=== PATIENT | male | born 1945 | race Caucasian/White ===

== ENCOUNTER 2018-09-19 11:01 | Emergency (ER) | payer MEDICARE, OTHER ==
[~2018-09-19] VITALS: Ht 175.3 cm; Wt 92.4 kg
[~2018-09-19 11:01] MED LIST: ASPI81TA26 PO; CO Q200C10 PO; LIPI80TA PO; LISI-542 PO; LUTE20CA PO; LUTE20TA PO; MAGN500T6 PO; METO1TAB87 PO; MM S100C PO; MULTCAP PO; PLAV1TAB2 PO; SYNT75TA PO; VITA200016 PO
[2018-09-19] MEDS ORDERED: DIGOXIN INJ 0.5 MG/2 ML AMP (J1160) IV STA ×2 (12:07→12:34)
[2018-09-19 12:17] LABS: BASO # 0.1 10^3/uL (0.0-0.2); BASO % 0.6 % (0.0-1.0); EOS % 0.3 % (0.0-3.0); HEMATOCRIT 36.6 % (42.0-52.0); HEMOGLOBIN 12.3 g/dl (13.5-17.5); LYMPH # 0.6 10^3/uL (1.5-4.5); LYMPH % 4.6 % (24.0-44.0); MEAN CORPUSCULAR HEMOGLOBIN 30.9 pg (27.0-33.0); MEAN CORPUSCULAR HGB CONC 33.6 g/dl (32.0-36.5); MONO # 0.5 10^3/uL (0.0-0.8); MONO % 3.9 % (0.0-5.0); NEUTROPHILS # 10.8 10^3/uL (1.8-7.7); NEUTROPHILS % 89.9 % (36.0-66.0); PLATELET COUNT, AUTOMATED 346 10^3/uL (150-450); RED BLOOD COUNT 3.98 10^6/uL (4.30-6.10)
[2018-09-19 12:28] LABS: INR 1.12; PROTHROMBIN TIME 14.1 SECONDS (11.8-14.0)
[2018-09-19 12:29] LABS: PARTIAL THROMBOPLASTIN TIME 38.9 SECONDS (25.0-38.4)
[2018-09-19 12:32] LABS: BLOOD UREA NITROGEN 17 MG/DL (7-18); CALCIUM LEVEL 8.7 MG/DL (8.8-10.2); CARBON DIOXIDE LEVEL 28 MEQ/L (21-32); CHLORIDE LEVEL 105 MEQ/L (98-107); CK-MB VALUE MASS 1.3 NG/ML (<3.6); CPK CREATINE PHOSPHOKINASE 55 U/L (39-308); CREATININE FOR GFR 0.82 MG/DL (0.70-1.30); GLOMERULAR FILTRATION RATE > 60.0 (>42); GLUCOSE, FASTING 115 MG/DL (70-100); MAGNESIUM LEVEL 2.1 MG/DL (1.8-2.4); MB/CK RELATIVE INDEX 2.36 (< OR =4); POTASSIUM SERUM 4.2 MEQ/L (3.5-5.1); SODIUM LEVEL 139 MEQ/L (136-145); TROPONIN I < 0.02 NG/ML (< 0.10)
[2018-09-19] MEDS: METOPROLOL 5 MG/5 ML VIAL IV SCH ×3 (13:10→13:21)
--- NOTE | 2018-09-19 13:10 | REP ---
CHEST, PORTABLE: AP portable view of the chest is performed. There are no prior studies for comparison. There is no acute infiltrate or pulmonary edema. There is mild cardiomegaly. There is mild tortuosity of the thoracic aorta. The mediastinal silhouette is otherwise unremarkable. Multiple sternal wires are present. IMPRESSION: Mild cardiomegaly. No acute infiltrate. Electronically Signed by Alec Tate MD 09/22/2018 11:15 A
[2018-09-19 13:44] VITALS: BP 161/56
[2018-09-19] MEDS ORDERED: METOPROLOL TART 25 MG TABLET PO ONE (13:45)
[2018-09-19] MEDS ORDERED: DIGOXIN INJ 0.5 MG/2 ML AMP (J1160) IV ONE ×2 (13:45→15:00)
[2018-09-19] MEDS ORDERED: APIXABAN 5 MG TAB (ELIQUIS) PO ONE (13:45)
[2018-09-19 13:57] LABS: LIPASE 94 U/L (73-393)
[2018-09-19 16:56] VITALS: BP 124/66
[2018-09-19] MEDS ORDERED: LOPR1TAB6 PO ×2 (16:58→17:04)
[2018-09-19] MEDS ORDERED: ELIQ5TAB PO ×2 (16:58→17:04)
[2018-09-19] MEDS ORDERED: DIGO0.25 PO ×2 (16:58→17:04)
--- NOTE | 2018-09-20 08:02 | ECGEPIP ---
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
--- NOTE | 2018-09-20 08:08 | ECGEPIP ---
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
[2018-09-20] MEDS ORDERED: CLOP75TA2 PO (09:05)
[2018-09-20] MEDS ORDERED: B-122500 PO (09:05)
== END 2018-09-19 17:15 | disposition home or self-care (01) ==
LOC: M ED 11:01
DX: I48.91 Unspecified atrial fibrillation (principal); C85.90 Non-Hodgkin lymphoma, unspecified, unspecified site; Z95.1 Presence of aortocoronary bypass graft; Z95.5 Presence of coronary angioplasty implant and graft; Z79.899 Other long term (current) drug therapy; Z79.82 Long term (current) use of aspirin; Z79.01 Long term (current) use of anticoagulants; Z88.0 Allergy status to penicillin; Z88.8 Allergy status to other drugs, medicaments and biological substances
CPT/HCPCS: 71045; 80048; 82550; 82553; 83690; 83735; 84443; 84484; 85025; 85610; 85730; 93005; 93041; 94760; 96374; 96375; 96376; 99285; J1160

== ENCOUNTER 2018-09-20 08:30 | Emergency (ER) | payer MEDICARE, OTHER ==
[~2018-09-20] VITALS: Ht 172.7 cm; Wt 90.5 kg
[~2018-09-20 08:30] MED LIST changes: +DIGO0.25 PO; +ELIQ5TAB PO; +LOPR1TAB6 PO
[2018-09-20] MEDS ORDERED: B-122500 PO (09:05)
[2018-09-20] MEDS ORDERED: CLOP75TA2 PO (09:05)
[2018-09-20 11:30] VITALS: BP 115/61
--- NOTE | 2018-09-23 15:06 | REP ---
REASON: Chest pain. COMPARISON: 09/22/2018 Cardiomediastinal silhouette and lung schrader are unchanged. Once again, the cardiac silhouette is accentuated by technique as are the interstitial markings. No acute patchy parenchymal opacities or pleural effusions have developed. Note is again made of previous median sternotomy. There is no change in the osseous structures. IMPRESSION: No significant change from yesterday. Cardiomegaly with no evidence of acute cardiopulmonary disease. Electronically Signed by Taiwo Kingston DO 09/23/2018 05:07 P
== END 2018-09-20 12:02 | disposition home or self-care (01) ==
LOC: M ED 08:30
DX: I48.91 Unspecified atrial fibrillation (principal); I10 Essential (primary) hypertension; E78.5 Hyperlipidemia, unspecified; E07.9 Disorder of thyroid, unspecified; I25.2 Old myocardial infarction; Z85.72 Personal history of non-Hodgkin lymphomas; Z95.1 Presence of aortocoronary bypass graft; Z95.5 Presence of coronary angioplasty implant and graft; Z79.899 Other long term (current) drug therapy; Z79.82 Long term (current) use of aspirin; Z79.890 Hormone replacement therapy; Z79.01 Long term (current) use of anticoagulants; Z88.0 Allergy status to penicillin; Z88.8 Allergy status to other drugs, medicaments and biological substances

== ENCOUNTER → 2020-08-30 | Outpatient (CLI) | payer MEDICARE, BC ==
[~2020-08-30] MED LIST changes: +B-122500 PO; +CLOP75TA2 PO; +CRES40TA PO; -DIGO0.25 PO; +DIGO0.253 PO; +DRON400T PO; +FERR324T21 PO; +FOLI1TAB11 PO; +LEVO50TA5 PO; -LISI-542 PO; +LISI-898 PO
--- NOTE | 2020-08-31 19:00 | SLEEPCENT ---
DATE: 08/30/2020 ORDERED BY: DAVID Stewart Nocturnal polysomnography was performed for evaluation of sleep physiology in this patient with a history of excessive somnolence and nonrestorative sleep who has the comorbidities of coronary artery disease and hypertension as well as paroxysmal atrial fibrillation. Seven hours and 50 minutes of data were reviewed. There were 312.5 minutes of sleep identified. Sleep latency was short at 8.5 minutes. REM latency was short at 71 minutes. Sleep architecture showed some fragmentation. There were three five cycles noted. Overall sleep efficiency was 67.3%. The electrocardiogram showed a sinus-appearing rhythm with occasional PVCs. Average heart rate was 80 beats per minute. EEG showed normal waveforms for wake and sleep. There were 63 respiratory events identified of 10 seconds in duration or greater for an apnea-hypopnea index of 12.1. The events were primarily obstructive, not exclusive to sleep stage nor body posture. Arousals from respiratory events occurred 4.4 times per hour, and oxygen desaturations to 88% were seen. There was some activity in the limb leads. Limb movement arousal index was 3.1. There were no trains of events. IMPRESSION: Obstructive sleep apnea syndrome (G47.33). Apnea-hypopnea index 12.1. RECOMMENDATION: The patient should be encouraged to return to [facility] for [facility]. In the interim, alcohol and sedative avoidance should be practiced and caution exercised during the operation of motor vehicles. cc: Abiodun Sapp MD
== END ==
LOC: M SLEEP 20:00
PROVIDERS: ATTEND Nurse Practitioner Family
DX: R06.83 Snoring (principal)

== ENCOUNTER → 2020-10-19 | Outpatient (CLI) | payer MEDICARE, BC ==
--- NOTE | 2020-10-20 14:29 | SLEEPCENT ---
DATE: 10/19/2020 ORDERED BY: Pallavi Watt Nocturnal polysomnography was performed for the titration of pressure therapy in this patient with obstructive sleep apnea syndrome, apnea-hypopnea index of 12. For testing, a ResMed AirFit full-face mask of medium size was used. There was 4 cm of water pressure applied to the circuit, and the lights were extinguished. There was 6 hours of data reviewed. There was 135 minutes of sleep identified. Sleep latency was short at 12.5 minutes. REM latency was short at 75 minutes. Sleep architecture initially showed improvement. There were two REM cycles. Patient had difficulty re-establishing sleep after midnight with resultant reduction of in sleep efficiency of 38%. The electrocardiogram showed a sinus rhythm with an average heart rate of 70 beats per minute. EEG showed fairly normal waveforms for wake and sleep. Time for titration was somewhat limited; however, sleep did improve on a CPAP pressure of +6. IMPRESSION: Obstructive sleep apnea syndrome (G47.33). RECOMMENDATION: Initiation of pressure therapy at 6 cm of water would seem appropriate. Close clinical followup is recommended given the limited time for titration during this test.
== END ==
LOC: M SLEEP 20:00
PROVIDERS: ATTEND Nurse Practitioner Family
DX: G47.33 Obstructive sleep apnea (adult) (pediatric) (principal)

== ENCOUNTER 2020-10-24 03:31 | Emergency (ER) | payer MEDICARE, BC ==
[~2020-10-24] VITALS: Ht 172.7 cm; Wt 99.5 kg
[2020-10-24] MEDS ORDERED: CVS1CAP2 PO (03:49)
[2020-10-24 08:11] LABS: VENOUS BASE EXCESS -3.6 (-2.0-2.0); VENOUS HCO3 19.8 MEQ/L (23.0-27.0); VENOUS O2 SATURATION 97.9 % (60.0-80.0); VENOUS PARTIAL PRESSURE O2 107.4 mmHg (30.0-50.0); VENOUS STANDARD HCO3 21.5 MEQ/L; VENOUS TOTAL CO2 20.8 MEQ/L (24.0-28.0)
[2020-10-24 08:18] LABS: BASO # 0.1 10^3/uL (0.0-0.2); BASO % 0.6 % (0.0-1.0); EOS # 0.1 10^3/uL (0.0-0.5); EOS % 0.5 % (0.0-3.0); HEMATOCRIT 45.1 % (42.0-52.0); HEMOGLOBIN 15.5 g/dl (13.5-17.5); LYMPH # 1.2 10^3/uL (1.5-5.0); LYMPH % 11.2 % (24.0-44.0); MEAN CORPUSCULAR HEMOGLOBIN 31.4 pg (27.0-33.0); MEAN CORPUSCULAR HGB CONC 34.4 g/dl (32.0-36.5); MEAN CORPUSCULAR VOLUME 91.5 fl (80.0-96.0); MONO # 0.8 10^3/uL (0.0-0.8); MONO % 7.3 % (2.0-8.0); NEUTROPHILS # 8.7 10^3/uL (1.5-8.5); NEUTROPHILS % 79.7 % (36.0-66.0); PLATELET COUNT, AUTOMATED 214 10^3/uL (150-450); RED BLOOD COUNT 4.93 10^6/uL (4.30-6.10); WHITE BLOOD COUNT 10.9 10^3/uL (4.0-10.0)
--- NOTE | 2020-10-24 08:30 | REP ---
INDICATION: SOB, gasps for air from sleep. COMPARISON: 09/20/2018 a portable exam TECHNIQUE: PA and lateral FINDINGS: Note is again made of previous median sternotomy. Since the last examination the patient has undergone recorder device implantation. Lung schrader are clear and stable. The heart is not enlarged. The pleural angles are sharp. There is no significant change in appearance of the osseous structures. IMPRESSION: No acute cardiopulmonary disease. <Electronically signed by Taiwo Kingston > 10/24/20 [id number]
[2020-10-24 08:41] LABS: CK-MB VALUE MASS 2.4 NG/ML (<3.6); CPK CREATINE PHOSPHOKINASE 94 U/L (39-308); MB/CK RELATIVE INDEX 2.55 (< OR =4); TROPONIN I < 0.02 NG/ML (< 0.10)
[2020-10-24 09:00] LABS: ERYTHROCYTE SEDIMENTATION RATE 3 mm/hr (0-20)
[2020-10-24 09:17] LABS: NT-PRO BNP 1060 PG/ML (<450)
[2020-10-24] MEDS ORDERED: FUROSEMIDE 20 MG TAB PO ONE (09:35)
[2020-10-24] MEDS ORDERED: LASI20TA3 PO (09:37)
[2020-10-24] MEDS ORDERED: HYDR-643 PO (09:39)
[2020-10-24 09:53] VITALS: BP 142/72
--- NOTE | 2020-10-24 19:32 | ECGEPIP ---
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
== END 2020-10-24 09:55 | disposition home or self-care (01) ==
LOC: M ED 03:31
DX: R79.89 Other specified abnormal findings of blood chemistry (principal); R06.00 Dyspnea, unspecified; I10 Essential (primary) hypertension; E03.9 Hypothyroidism, unspecified; C85.90 Non-Hodgkin lymphoma, unspecified, unspecified site; Z87.442 Personal history of urinary calculi; Z95.1 Presence of aortocoronary bypass graft; Z79.899 Other long term (current) drug therapy; Z79.82 Long term (current) use of aspirin; Z79.890 Hormone replacement therapy

== ENCOUNTER → 2021-08-29 | Outpatient (REF) | payer MEDICARE, BC ==
[~2021-08-29] MED LIST changes: +CVS1CAP2 PO; +HYDR-643 PO; +LASI20TA3 PO; -LISI-898 PO; +LISI5TAB11 PO
== END ==
LOC: M SMT 12:41
PROVIDERS: ATTEND Urology
DX: C61 Malignant neoplasm of prostate (principal)

== ENCOUNTER → 2021-10-18 | Outpatient (CLI) | payer MEDICARE, BC | LOC: M ONCR 12:51 | PROVIDERS: ATTEND General Practice | DX: C61 Malignant neoplasm of prostate (principal); C85.90 Non-Hodgkin lymphoma, unspecified, unspecified site; N52.35 Erectile dysfunction following radiation therapy; Z79.01 Long term (current) use of anticoagulants; Z79.02 Long term (current) use of antithrombotics/antiplatelets; Z79.890 Hormone replacement therapy; Z79.82 Long term (current) use of aspirin; Z79.899 Other long term (current) drug therapy; Z88.0 Allergy status to penicillin; Z92.3 Personal history of irradiation; Z95.4 Presence of other heart-valve replacement ==

== ENCOUNTER 2021-12-07 09:58 | Outpatient (RCR) | payer MEDICARE, BC ==
[~2021-12-07 09:58] MED LIST changes: +CIPR750T2 PO; +CLOP75TA99 PO; +LORA1TAB4 PO; -PLAV1TAB2 PO
== END 2021-12-11 ==
LOC: M ONCR 09:58
PROVIDERS: ATTEND General Practice
DX: C61 Malignant neoplasm of prostate (principal)

== ENCOUNTER 2022-01-10 10:14 | Outpatient (RCR) | payer MEDICARE, BC ==
[2022-01-16] MEDS ORDERED: FLOM0.4C39 PO (10:50)
== END 2022-01-10 23:59 | disposition home or self-care (01) ==
LOC: M ONCR 10:14
PROVIDERS: ATTEND Urology
DX: C61 Malignant neoplasm of prostate (principal)

== ENCOUNTER 2022-01-25 09:53 | Outpatient (RCR) | payer MEDICARE, BC ==
[~2022-01-25 09:53] MED LIST changes: +FLOM0.4C39 PO
== END 2022-02-10 ==
LOC: M ONCR 09:53
PROVIDERS: ATTEND General Practice
DX: C61 Malignant neoplasm of prostate (principal)

== ENCOUNTER → 2022-07-10 | Outpatient (CLI) | payer MEDICARE, BC ==
[~2022-07-10] MED LIST changes: +LORA1TAB23 PO; -LORA1TAB4 PO
== END ==
LOC: M ONCR 10:35
PROVIDERS: ATTEND General Practice
DX: Z08 Encounter for follow-up examination after completed treatment for malignant neoplasm (principal); Z85.46 Personal history of malignant neoplasm of prostate; Z92.21 Personal history of antineoplastic chemotherapy; Z92.3 Personal history of irradiation; Z79.818 Long term (current) use of other agents affecting estrogen receptors and estrogen levels; R23.2 Flushing; M62.838 Other muscle spasm; Z71.2 Person consulting for explanation of examination or test findings; Z79.899 Other long term (current) drug therapy; Z88.1 Allergy status to other antibiotic agents

== ENCOUNTER → 2022-12-26 | Outpatient (CLI) | payer MEDICARE, BC | LOC: M ONCR 09:31 | PROVIDERS: ATTEND General Practice | DX: C61 Malignant neoplasm of prostate (principal); R39.12 Poor urinary stream; Z71.2 Person consulting for explanation of examination or test findings; Z79.02 Long term (current) use of antithrombotics/antiplatelets; Z79.818 Long term (current) use of other agents affecting estrogen receptors and estrogen levels; Z79.899 Other long term (current) drug therapy; Z79.82 Long term (current) use of aspirin; Z85.72 Personal history of non-Hodgkin lymphomas; Z88.1 Allergy status to other antibiotic agents; Z88.8 Allergy status to other drugs, medicaments and biological substances; Z92.21 Personal history of antineoplastic chemotherapy; Z92.3 Personal history of irradiation ==

== ENCOUNTER → 2023-10-24 | Outpatient (CLI) | payer MEDICARE, BC | LOC: M PLALAB 10:14 | PROVIDERS: ATTEND Urology | DX: C61 Malignant neoplasm of prostate (principal) ==

== ENCOUNTER → 2023-12-27 | Outpatient (CLI) | payer MEDICARE, BC ==
[~2023-12-27] MED LIST changes: +ATOR-398 PO; -LIPI80TA PO
== END ==
LOC: M ONCR 09:39
PROVIDERS: ATTEND General Practice
DX: C61 Malignant neoplasm of prostate (principal); R39.12 Poor urinary stream; R39.15 Urgency of urination; Z79.02 Long term (current) use of antithrombotics/antiplatelets; Z79.82 Long term (current) use of aspirin; Z79.85 Long-term (current) use of injectable non-insulin antidiabetic drugs; Z79.890 Hormone replacement therapy; Z85.72 Personal history of non-Hodgkin lymphomas; Z88.1 Allergy status to other antibiotic agents; Z88.8 Allergy status to other drugs, medicaments and biological substances; Z92.21 Personal history of antineoplastic chemotherapy; Z92.29 Personal history of other drug therapy; Z92.3 Personal history of irradiation

== ENCOUNTER → 2024-08-27 | Outpatient (CLI) | payer MEDICARE, BC ==
[~2024-08-27] MED LIST changes: -FLOM0.4C39 PO; +TAMS-18 PO
== END ==
LOC: M SLEEP HO 10:30
PROVIDERS: ATTEND Physician Assistant
DX: R06.83 Snoring (principal)